=== PATIENT | female | born 1950 | race Caucasian/White ===

== ENCOUNTER 2022-09-11 00:27 | Emergency (ER) | payer MEDICARE ==
[~2022-09-11] VITALS: Ht 157.5 cm; Wt 86.3 kg
[2022-09-11 00:34] VITALS: BP 191/86
[2022-09-11] MEDS ORDERED: famotidine 20mg tablet PO ONE (00:50)
[2022-09-11] MEDS ORDERED: predniSONE 20 mg tablet PO ONE (00:50)
== END 2022-09-11 03:44 | disposition left against medical advice (07) ==
LOC: ER 00:28
DX: R21 Rash and other nonspecific skin eruption (principal); Z53.21 Procedure and treatment not carried out due to patient leaving prior to being seen by health care provider
CPT/HCPCS: 99281; J7512